=== PATIENT | male | born 1975 | race Hispanic/Latino ===

== ENCOUNTER 2018-12-25 09:20 | Emergency (ER) | payer OTHER ==
[2018-12-25] MEDS ORDERED: KETOROLAC TROMETHAMINE 60 MG/2 ML VIAL ONE (09:36)
[2018-12-25] MEDS ORDERED: LIDOCAINE HCL-MPF 1% 2ML VIAL ONE ×2 (09:36→09:39)
[2018-12-25] MEDS ORDERED: CEFTRIAXONE SODIUM 1 GM ONE (09:37)
== END 2018-12-25 10:16 | disposition home or self-care (01) ==
LOC: EDH 09:20
DX: K02.9 Dental caries, unspecified (principal)
CPT/HCPCS: 96372 ×2; 99283; J0696; J1885; J3490 ×2

== ENCOUNTER 2022-06-18 14:31 | Emergency (ER) | payer OTHER ==
[2022-06-18 15:06] VITALS: BP 136/82
[2022-06-18 15:17] LABS: BASOPHILS % (AUTO) 0.5 % (0.0-5.0); EOSINOPHILS % (AUTO) 2.5 % (0.0-8.0); LYMPHOCYTES % (AUTO) 16.7 % (21.0-51.0); MEAN CORPUSCULAR HEMOGLOBIN 25.3 pg (27.0-33.0); MEAN CORPUSCULAR HGB CONC 30.8 g/dL (32.0-36.0); MEAN CORPUSCULAR VOLUME 82.2 fL (79-99); MONOCYTES % (AUTO) 7.2 % (3.0-13.0); NEUTROPHILS % (AUTO) 72.8 % (40.0-77.0); PLATELET COUNT (AUTO) 191 K/uL (130-400); RED BLOOD CELL COUNT(AUTO) 5.96 MIL/uL (4.50-6.20); RED CELL DISTRIBUTION WIDTH 14.5 % (11.0-15.5); WHITE BLOOD COUNT (AUTO) 10.5 K/uL (4.8-10.8)
[2022-06-18 15:28] LABS: CREATININE 0.6 mg/dL (0.5-1.5); POTASSIUM 4.1 mmol/L (3.5-5.1)
[2022-06-18 15:32] LABS: ALBUMIN 3.3 g/dL (3.5-5.0); MAGNESIUM 1.6 mg/dL (1.80-2.40); TOTAL PROTEIN, SERUM 7.8 g/dL (6.0-8.3)
[2022-06-18 15:39] LABS: APPEARANCE,URINE CLEAR (CLEAR); BILIRUBIN,URINE NEGATIVE (NEGATIVE); COLOR,URINE YELLOW (YELLOW); GLUCOSE, URINE (UA) NEGATIVE (NEGATIVE); KETONES,URINE NEGATIVE (NEGATIVE); LEUKOCYTE ESTERASE ,URINE NEGATIVE (NEGATIVE); NITRATE,URINE NEGATIVE (NEGATIVE); OCCULT BLOOD,URINE NEGATIVE (NEGATIVE); PROTEIN,URINE NEGATIVE (NEGATIVE)
[2022-06-18] MEDS ORDERED: MAGNESIUM OXIDE 400 MG TABLET PO ONE (16:08)
[2022-06-18 16:23] LABS: B-TYPE NATRIURETIC PEPTIDE 26 pg/mL (0-100)
[2022-06-18] MEDS ORDERED: MAGNESIUM OXIDE 400 MG TABLET PO SCH (16:30)
== END 2022-06-18 18:08 | disposition home or self-care (01) ==
LOC: EDH 14:31
DX: E83.42 Hypomagnesemia (principal); R42 Dizziness and giddiness; R03.0 Elevated blood-pressure reading, without diagnosis of hypertension; E66.01 Morbid (severe) obesity due to excess calories; Z68.41 Body mass index [BMI] 40.0-44.9, adult
CPT/HCPCS: 36415; 70450; 71045; 80053; 81003; 82550; 83735; 83880; 84484; 85025; 93005

== ENCOUNTER 2022-07-23 04:37 | Emergency (ER) | payer SELFPAY ==
[~2022-07-23] VITALS: Ht 177.8 cm; Wt 274.4 kg
[2022-07-23 05:02] LABS: BASOPHILS % (AUTO) 0.5 % (0.0-5.0); EOSINOPHILS % (AUTO) 3.1 % (0.0-8.0); HEMATOCRIT 50.9 % (42-54); LYMPHOCYTES % (AUTO) 26.7 % (21.0-51.0); MEAN CORPUSCULAR HEMOGLOBIN 25.7 pg (27.0-33.0); MEAN CORPUSCULAR HGB CONC 30.6 g/dL (32.0-36.0); MEAN CORPUSCULAR VOLUME 83.9 fL (79-99); MONOCYTES % (AUTO) 7.2 % (3.0-13.0); NEUTROPHILS % (AUTO) 61.9 % (40.0-77.0); PLATELET COUNT (AUTO) 197 K/uL (130-400); RED BLOOD CELL COUNT(AUTO) 6.07 MIL/uL (4.50-6.20); RED CELL DISTRIBUTION WIDTH 15.2 % (11.0-15.5); WHITE BLOOD COUNT (AUTO) 9.5 K/uL (4.8-10.8)
[2022-07-23 05:11] LABS: CREATININE 0.9 mg/dL (0.5-1.5); POTASSIUM 3.7 mmol/L (3.5-5.1)
[2022-07-23 05:15] LABS: INR 0.94 (0.85-1.15); PROTHROMBIN TIME 10.3 SEC (9.6-11.6)
[2022-07-23 05:16] LABS: ALBUMIN 3.3 g/dL (3.5-5.0); MAGNESIUM 1.6 mg/dL (1.80-2.40)
[2022-07-23 05:17] LABS: PARTIAL THROMBOPLASTIN TIME 27.2 SEC (26.3-35.5)
[2022-07-23 05:34] LABS: APPEARANCE,URINE TURBID (CLEAR); BILIRUBIN,URINE NEGATIVE (NEGATIVE); COLOR,URINE LIGHT-YELLOW (YELLOW); GLUCOSE, URINE (UA) 50 mg/dL (NEGATIVE); KETONES,URINE NEGATIVE (NEGATIVE); LEUKOCYTE ESTERASE ,URINE NEGATIVE Leu/uL (NEGATIVE); NITRATE,URINE NEGATIVE (NEGATIVE); PH,URINE 7.5 (5.0-8.0); PROTEIN,URINE 100 mg/dL (NEGATIVE); UROBILINOGEN,URINE 0.2 mg/dL (0.2-1.0)
[2022-07-23 05:36] LABS: B-TYPE NATRIURETIC PEPTIDE 32 pg/mL (0-100)
[2022-07-23 05:43] LABS: BACTERIA,URINE RARE /HPF (None Seen); MUCUS,URINE RARE LPF (None Seen); SQUAMOUS EPITHELIAL CELL,UR RARE /HPF (0-2)
[2022-07-23] MEDS ORDERED: CEPH500B PO (08:28)
[2022-07-23] MEDS ORDERED: CEFTRIAXONE 1G VIAL IVP ONE (08:30)
[2022-07-23 08:52] VITALS: BP 139/87
== END 2022-07-23 08:52 | disposition home or self-care (01) ==
LOC: EDH 04:37
DX: N39.0 Urinary tract infection, site not specified (principal); G47.33 Obstructive sleep apnea (adult) (pediatric); Z20.822 Contact with and (suspected) exposure to COVID-19
CPT/HCPCS: 99285; 93970; 96374; 71045; 87635; 83735; 84484; 80053; 83880; 85025; 85378; 85610; 85730; 87077; 87088; 87186; 87804 ×2; 81001; 36415; 93005; C9803; J0696

== ENCOUNTER 2023-06-08 03:20 | Emergency (ER) | payer OTHER ==
[~2023-06-08] VITALS: Ht 177.8 cm; Wt 267.6 kg
[~2023-06-08 03:20] MED LIST: CEPH500B PO
[2023-06-08 03:23] VITALS: BP 169/87; PULSE 93; RESP 20
== END 2023-06-08 04:35 | disposition left against medical advice (07) ==
LOC: EDH 03:20
DX: M79.89 Other specified soft tissue disorders (principal); Z53.21 Procedure and treatment not carried out due to patient leaving prior to being seen by health care provider
CPT/HCPCS: 99281

== ENCOUNTER 2023-06-10 10:05 | Emergency (ER) | payer OTHER ==
[~2023-06-10] VITALS: Ht 170.2 cm; Wt 267.2 kg
[2023-06-10 11:52] LABS: BASOPHILS # (AUTO) 0.05 K/uL (0.00-0.20); BASOPHILS % (AUTO) 0.6 % (0.0-5.0); EOSINOPHILS # (AUTO) 0.22 K/uL (0.00-0.70); EOSINOPHILS % (AUTO) 2.6 % (0.0-8.0); HEMATOCRIT 45.7 % (42-54); IMMATURE GRANULOCYTE ABSOLUTE 0.04 K/uL (0-1); LYMPHOCYTES # (AUTO) 1.9 K/uL (1.0-4.8); LYMPHOCYTES % (AUTO) 22.7 % (21.0-51.0); MEAN CORPUSCULAR HEMOGLOBIN 26.9 pg (27.0-33.0); MEAN CORPUSCULAR HGB CONC 32.6 g/dL (32.0-36.0); MEAN CORPUSCULAR VOLUME 82.6 fL (79-99); MONOCYTES # (AUTO) 0.7 K/uL (0.1-1.0); MONOCYTES % (AUTO) 8.2 % (3.0-13.0); NEUTROPHILS # (AUTO) 5.5 K/uL (1.8-7.7); NEUTROPHILS % (AUTO) 65.4 % (40.0-77.0); PLATELET COUNT (AUTO) 207 K/uL (130-400); RED BLOOD CELL COUNT(AUTO) 5.53 MIL/uL (4.50-6.20); RED CELL DISTRIBUTION WIDTH 13.5 % (11.0-15.5); WHITE BLOOD COUNT (AUTO) 8.5 K/uL (4.8-10.8)
[2023-06-10 11:59] LABS: CREATININE 0.6 mg/dL (0.5-1.5); POTASSIUM 3.9 mmol/L (3.5-5.1)
[2023-06-10 12:04] LABS: ALBUMIN 3.3 g/dL (3.5-5.0); BILIRUBIN,TOTAL 0.7 mg/dL (0.2-1.0); TOTAL PROTEIN, SERUM 7.8 g/dL (6.0-8.3)
[2023-06-10 12:43] LABS: B-TYPE NATRIURETIC PEPTIDE 17 pg/mL (0-100)
[2023-06-10] MEDS ORDERED: FURO40TA5 PO (14:44)
[2023-06-10] MEDS ORDERED: FUROSEMIDE 40 MG TABLET ONE (14:55)
[2023-06-10 15:16] LABS: SARS-CoV-2, RNA, NAAT NEGATIVE SARS CoV-2 (NEGATIVE)
[2023-06-10 15:21] LABS: INFLUENZA TYPE A Negative For Type A (NEGATIVE); INFLUENZA TYPE B Negative For Type B (NEGATIVE)
[2023-06-10 15:56] VITALS: BP 132/76; PULSE 91; RESP 24; O2SAT 93
[2023-06-10] MEDS ORDERED: FUROSEMIDE 40 MG TABLET PO ONE (16:00)
== END 2023-06-10 16:29 | disposition home or self-care (01) ==
LOC: EDH 10:05
DX: R06.02 Shortness of breath (principal); J98.8 Other specified respiratory disorders; G47.30 Sleep apnea, unspecified; E66.01 Morbid (severe) obesity due to excess calories; Z68.45 Body mass index [BMI] 70 or greater, adult; R09.89 Other specified symptoms and signs involving the circulatory and respiratory systems; I10 Essential (primary) hypertension; Z20.822 Contact with and (suspected) exposure to COVID-19; Z79.899 Other long term (current) drug therapy; Z98.890 Other specified postprocedural states
CPT/HCPCS: 99285; 71045; 87635; 84484; 80053; 83880; 85025; 87804 ×2; 36415; 93005; C9803